=== PATIENT | female | born 1975 | race Hispanic/Latino ===

== ENCOUNTER 2018-11-19 14:37 | Emergency (ER) | payer OTHER ==
--- OUTSIDE RECORDS SUMMARY | 2018-11-19 14:40 | XMS REPORT | Clinical Summary ---
:1975 Author Organization [facility] Address [address] [place] [address] Care Team Providers Name Role Phone Asked, No Pcp Primary Care Provider Unavailable Allergies No Known Allergies Medications Medication Sig Dispensed Refills Start Date End Date Status ibuprofen Take 600 mg by 0 Active (ADVIL,MOTRIN) 600 MG mouth every 6 tablet (six) hours as needed for mild pain. Active Problems Problem Noted Date Panniculitis 11/18/2016 Immunizations Name Dates Previously Given Next Due Pneumococcal Conjugate 13-Valent 11/20/2016 (Deferred: Patient Refused) Family History Medical History Relation Name Comments Diabetes Father Heart disease Maternal Grandmother Dementia Paternal Grandfather Diabetes Paternal Grandmother Relation Name Status Comments Father Alive Maternal Grandmother Mother Alive Paternal Grandfather Paternal Grandmother Social History Tobacco Use Types Packs/Day Years Used Date Current Some Day Smoker Cigarettes 0.25 10 Tobacco Cessation: Ready to Quit: Yes; Counseling Given: Yes Alcohol Use Drinks/Week oz/Week Comments Yes occasionally Sex Assigned at Date Recorded Not on file Job Start Date Occupation Industry Not on file Not on file Not on file Travel History Travel Start Travel End No recent travel history available. Last Filed Vital Signs Not on file Plan of Treatment Not on file Results Not on fileafter 11/18/2017 (Home) [place] [address] Advance Directives Patient has advance care planning documents, and code status on file. For more information, please contact:Wilmar [id number] [facility] [place] [address] Code Status Date Activated Date Inactivated Comments Full Code 11/18/2016 5:58 PM 11/20/2016 6:22 PM Code Status decision reached by: Patient
[2018-11-19 16:14] LABS: Absolute Lymphocytes (CBC) 2.9 K/uL (0.7-4.9); Absolute Monocytes 0.5 K/uL (0.1-1.3); Absolute Neutrophil 6.6 K/uL (1.8-8.0); Basophils % 0.6 % (0-1.3); Eosinophils % 0.4 % (0-4.4); Hematocrit 47.1 % (36.0-45.0); Lymphocytes % 28.7 % (15.3-44.8); MPV 8.2 fL (7.6-11.3); Monocytes % 4.8 % (3.3-12.3); RBC Red Blood Cell Count 5.23 M/uL (3.86-4.86)
[2018-11-19 16:23] LABS: Urine Amorphous Sediment 1+ /HPF (NONE SEEN); Urine Bacteria <20 /HPF (<20); Urine Culture Reflex Order NOT NEEDED; Urine Mucus 2+ /HPF (NONE SEEN); Urine RBC <5 /HPF (NONE SEEN)
[2018-11-19 16:31] LABS: ALT/SGPT 30 U/L (12-78); AST/SGOT 20 U/L (15-37); Albumin 3.5 g/dL (3.4-5.0); Alkaline Phosphatase 125 U/L (45-117); BUN Blood Urea Nitrogen 16 mg/dL (7-18); Bicarbonate 26 mmol/L (21-32); Bilirubin Direct < 0.1 mg/dL (0-0.2); Bilirubin Total 0.3 mg/dL (0.2-1.0); Glucose Level 138 mg/dL (74-106); Lipase 108 U/L (73-393); Potassium 4.6 mmol/L (3.5-5.1); Protein, Total 7.6 g/dL (6.4-8.2); Sodium Level 142 mmol/L (136-145)
[2018-11-19] MEDS ORDERED: NA CHLORIDE 0.9% 1,000 ML ONE (16:59)
[2018-11-19] MEDS ORDERED: ONDANSETRON 4 MG/2 ML VIAL ONE (16:59)
[2018-11-19] MEDS ORDERED: KETOROLAC 30 MG/ML INJ ONE (16:59)
--- NOTE | 2018-11-19 17:49 | RAD REPORT ---
EXAM DESCRIPTION: CT - Abdomen Pelvis W Contrast - 11/19/2018 5:20 pm CLINICAL HISTORY: Abdominal pain with nausea. COMPARISON: 2014 TECHNIQUE: Computed axial tomography of the abdomen pelvis was obtained. 100 cc Isovue-300 was admin istered intravenously. Oral contrast was not requested which limits evaluation of bowel. All CT scans are performed using dose optimization technique as appropriate and may include automated exposure control or mA/KV adjustment according to patient size. FINDINGS: The liver, spleen, pancreas, adrenal and kidneys appear unremarkable. There is no evidence of diverticulitis. Postsurgical changes involve stomach IUD in place. Fluid within nondilated small bowel IMPRESSION: Fluid within nondilated small bowel may indicate an enteritis.
--- NOTE | 2018-11-19 17:57 | EDPHYS ---
Physician Documentation [facility] [place], [place] Name: Ruma Pineda Age: 43 yrs Sex: Female : 1975 Arrival Date: 11/19/2018 Time: 14:40 Bed 13 Private MD: None, None ED Physician Ismael Palomo HPI: 11/19 17:07 This 43 yrs old Female presents to ER via Ambulatory with complaints of kb Abdominal Pain. 17:07 The patient presents with abdominal pain in the upper abdomen. Onset: The kb symptoms/episode began/occurred yesterday. The symptoms do not radiate. Associated signs and symptoms: Pertinent positives: nausea. The symptoms are described as constant. Modifying factors: The symptoms are alleviated by nothing, the symptoms are aggravated by nothing. Severity of pain: At its worst the pain was moderate in the emergency department the pain is unchanged. The patient has experienced a previous episode. The patient has not recently seen a physician. Pt reports she started having upper abd pain yesterday and it is worse today. States she had this same pain when she had a swollen appendix a few years ago so was worried that came back. Reports she was told they only took part of her appendix out when she had surgery.. 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 - Social history:: Smoking status: Patient/guardian denies using tobacco. - Ebola Screening: : Patient negative for fever greater than or equal to 101.5 degrees Fahrenheit, and additional compatible Ebola Virus Disease symptoms Patient denies exposure to infectious person Patient denies travel to an Ebola-affected area in the 21 days before illness onset. ROS: 17:10 Constitutional: Negative for fever, chills, and weight loss, Cardiovascular: Negative kb for chest pain, palpitations, and edema, Respiratory: Negative for shortness of breath, cough, wheezing, and pleuritic chest pain, Back: Negative for injury and pain, : Negative for injury, bleeding, discharge, and swelling, MS/Extremity: Negative for injury and deformity, Skin: Negative for injury, rash, and discoloration, Neuro: Negative for headache, weakness, numbness, tingling, and seizure. 17:10 Abdomen/GI: Positive for abdominal pain, nausea, Negative for vomiting, diarrhea, constipation, abdominal cramps, abdominal distension, anorexia. Exam: 17:10 Constitutional: This is a well developed, well nourished patient who is awake, alert, kb and in no acute distress. Head/Face: Normocephalic, atraumatic. Neck: Trachea midline, no thyromegaly or masses palpated, and no cervical lymphadenopathy. Supple, full range of motion without nuchal rigidity, or vertebral point tenderness. No Meningismus. Chest/axilla: Normal chest wall appearance and motion. Nontender with no deformity. No lesions are appreciated. Cardiovascular: Regular rate and rhythm with a normal S1 and S2. No gallops, murmurs, or rubs. Normal PMI, no JVD. No pulse deficits. Respiratory: Lungs have equal breath sounds bilaterally, clear to auscultation and percussion. No rales, rhonchi or wheezes noted. No increased work of breathing, no retractions or nasal flaring. Back: No spinal tenderness. No costovertebral tenderness. Full range of motion. Skin: Warm, dry with normal turgor. Normal color with no rashes, no lesions, and no evidence of cellulitis. MS/ Extremity: Pulses equal, no cyanosis. Neurovascular intact. Full, normal range of motion. Neuro: Awake and alert, GCS 15, oriented to person, place, time, and situation. Cranial nerves II-XII grossly intact. Motor strength 5/5 in all extremities. Sensory grossly intact. Cerebellar exam normal. Normal gait. 17:10 Abdomen/GI: Inspection: abdomen appears normal, Bowel sounds: normal, in all quadrants, Palpation: soft, in all quadrants, mild abdominal tenderness, in the right upper quadrant and left upper quadrant. Vital Signs: 14:48 BP 132 / 71; Pulse 87; Resp 18; Temp 99.3(O); Pulse Ox 98% on R/A; Weight 77.11 kg; hj Height 5 ft. 4 in. (162.56 cm); Pain 8/10; 17:26 BP 106 / 77; Pulse 75; Resp 18; Pulse Ox 100% on R/A; ae4 14:48 Body Mass Index 29.18 (77.11 kg, 162.56 cm) hj MDM: 15:45 Patient medically screened. 17:07 Data reviewed: vital signs, nurses notes. Data interpreted: Pulse oximetry: on room air kb is 98 %. Interpretation: normal. 17:09 Data reviewed: old medical records, Records reviewed, pt had complete append[place] [address] Radford. Pt educated that her appendix was removed, not just part of it. 17:54 Counseling: I had a detailed discussion with the patient and/or guardian regarding: the kb historical points, exam findings, and any diagnostic results supporting the discharge/admit diagnosis, lab results, radiology results, the need for outpatient follow up, a family practitioner, to return to the emergency department if symptoms worsen or persist or if there are any questions or concerns that arise at home. 11/19 15:04 Order name: Urine Culture sn 11/19 15:04 Order name: Urine Microscopic Only sn 11/19 15:51 Order name: Basic Metabolic Panel 11/19 15:51 Order name: CBC with Diff 11/19 15:51 Order name: Hepatic Function 11/19 15:51 Order name: Lipase 11/19 16:25 Order name: Urine Microscopic Only; Complete Time: 16:27 EDMS 11/19 16:31 Order name: Urine Dipstick--Ancillary (enter results) 11/19 16:31 Order name: Urine --Ancillary (enter results) 11/19 16:32 Order name: Basic Metabolic Panel; Complete Time: 16:34 EDMS 11/19 16:32 Order name: Liver (Hepatic) Function; Complete Time: 16:34 EDMS 11/19 16:32 Order name: Lipase; Complete Time: 16:34 EDMS 11/19 16:35 Order name: CBC with Automated Diff; Complete Time: 16:37 EDMS 11/19 15:04 Order name: Urine Test (obtain specimen); Complete Time: 16:04 snw 11/19 15:04 Order name: Urine Dipstick-Ancillary (obtain specimen); Complete Time: 16:04 snw 11/19 15:51 Order name: IV Saline Lock; Complete Time: 16:04 kb 11/19 15:51 Order name: Labs collected and sent; Complete Time: 16:04 kb 11/19 17:52 Order name: CT; Complete Time: 17:51 EDMS Administered Medications: 16:45 Drug: NS 0.9% 1000 ml Route: IV; Rate: 1000 ml; Site: left antecubital; ae4 16:45 Drug: Zofran 4 mg Route: IVP; Site: left antecubital; ae4 17:30 Follow up: Response: Nausea is decreased ae4 16:50 Drug: TORadol 30 mg Route: IVP; Site: left antecubital; ae4 17:30 Follow up: Response: Pain is decreased ae4 Disposition: 11/19/18 17:56 Discharged to Home. Impression: Enteritis. - Condition is Stable. - Discharge Instructions: Viral Gastroenteritis, Adult, [id number]. - Prescriptions for Bentyl 20 mg Oral Tablet - take 1 tablet by ORAL route every 6 hours As needed; 20 tablet. Zofran 4 mg Oral Tablet - take 1 tablet by ORAL route every 6 hours As needed; 20 tablet. - Medication Reconciliation Form, Thank You Letter, Antibiotic Education, Prescription Opioid Use, Work release form form. - Follow up: Private Physician; When: 2 - 3 days; Reason: Recheck today's complaints, Continuance of care, Re-evaluation by your physician. Follow up: Emergency Department; When: As needed; Reason: Worsening of condition. Addendum: 11/21/2018 06:00 Co-signature as Attending Physician, Ismael Palomo MD. g s Signatures: Dispatcher [employer] [place] Jaky Aguiar, DATA REPORT ANALYST-C DATA REPORT ANALYST-Ckb Lucretia Pitt, CASSIEC DATA REPORT ANALYST-Csnw Tim Edwards, Ismael Hutton RN, MD MD gs Elliott, Andrea, ADRIAN RN ae4 Corrections: (The following items were deleted from the chart) 11/19 18:26 17:56 11/19/2018 17:56 Discharged to Home. Impression: Enteritis. Condition is Stable. ae4 Forms are Medication Reconciliation Form, Thank You Letter, Antibiotic Education, Prescription Opioid Use. Follow up: Private Physician; When: 2 - 3 days; Reason: Recheck today's complaints, Continuance of care, Re-evaluation by your physician. Follow up: Emergency Department; When: As needed; Reason: Worsening of condition. kb
--- NOTE | 2018-11-19 17:57 | ER ---
Nurse's Notes [facility] Name: Ruma Pineda Age: 43 yrs Sex: Female : 1975 Arrival Date: 11/19/2018 Time: 14:40 Bed 13 Private MD: None, None Diagnosis: Enteritis Presentation: 11/19 14:46 Presenting complaint: Patient states: i woke up with pain on my L upper abd, that moves hj to the back, pain is 8/10; reports nausea, denies vomiting; denies diarrhea. Transition of care: patient was not received from another setting of care. Onset of symptoms was November 19, 2018. Risk Assessment: Do you want to hurt yourself or someone else? Patient reports no desire to harm self or others. Initial Sepsis Screen: Does the patient meet any 2 criteria? No. Patient's initial sepsis screen is negative. Does the patient have a suspected source of infection? No. Patient's initial sepsis screen is negative. Care prior to arrival: None. 14:46 Method Of Arrival: Ambulatory 14:46 Acuity: TAI 3 hj Triage Assessment: 15:10 General: Appears uncomfortable, Behavior is cooperative, anxious. Pain: Complains of ae4 pain in abdomen Pain currently is 8 out of 10 on a pain scale. Quality of pain is described as aching, crampy. EENT: No signs and/or symptoms were reported regarding the EENT system. Neuro: Level of Consciousness is awake, alert, obeys commands, Oriented to person, place, time, situation, Appropriate for age. Cardiovascular: Heart tones S1 S2 present Patient's skin is warm and dry. Respiratory: Airway is patent Respiratory effort is even, unlabored, Respiratory pattern is regular, symmetrical, Breath sounds are clear bilaterally. GI: Abdomen is round non-distended, Bowel sounds present X 4 quads. Abd is soft and non tender. : No signs and/or symptoms were reported regarding the genitourinary system. Derm: Skin is pale. Musculoskeletal: No signs and/or symptoms reported regarding the musculoskeletal system. 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 - Social history:: Smoking status: Patient/guardian denies using tobacco. - Ebola Screening: : Patient negative for fever greater than or equal to 101.5 degrees Fahrenheit, and additional compatible Ebola Virus Disease symptoms Patient denies exposure to infectious person Patient denies travel to an Ebola-affected area in the 21 days before illness onset. Screenin:27 Abuse screen: Denies threats or abuse. Nutritional screening: No deficits noted. ae4 Tuberculosis screening: No symptoms or risk factors identified. Fall Risk None identified. Assessment: 15:15 GI: Bowel sounds present X 4 quads. Abd is soft and non tender X 4 quads. ae4 17:27 Reassessment: Patient appears in no apparent distress at this time. Patient and/or ae4 family updated on plan of care and expected duration. Pain level reassessed. Patient states feeling better. 17:40 Reassessment: Patient and/or family updated on plan of care and expected duration. Pain ae4 level reassessed. Updated on plan of care, patient verbalized understanding. Patient states feeling better. Patient states symptoms have improved. Vital Signs: 14:48 BP 132 / 71; Pulse 87; Resp 18; Temp 99.3(O); Pulse Ox 98% on R/A; Weight 77.11 kg; hj Height 5 ft. 4 in. (162.56 cm); Pain 8/10; 17:26 BP 106 / 77; Pulse 75; Resp 18; Pulse Ox 100% on R/A; ae4 14:48 Body Mass Index 29.18 (77.11 kg, 162.56 cm) ED Course: 14:40 Patient arrived in ED. mr 14:41 None, None is Private Physician. mr 14:47 Triage completed. hj 14:48 Arm band placed on left wrist. hj 15:10 Bed in low position. Call light in reach. Side rails up X 1. Pulse ox on. NIBP on. ae4 15:45 Jaky Aguiar FNP-C is PHCP. kb 15:45 Ismael Palomo MD is Attending Physician. kb 15:48 Mitchell Gongora RN is Primary Nurse. ae4 16:04 Initial lab(s) drawn, by fl, sent to lab. Inserted saline lock: 22 gauge in left jb1 antecubital area, using aseptic technique. Blood collected. 16:04 Urine collected: clean catch specimen, clear, mc colored. jb1 17:03 Patient moved to ME via wheelchair. ae4 17:20 No provider procedures requiring assistance completed. IV discontinued, intact, ae4 bleeding controlled, No redness/swelling at site. Pressure dressing applied. 17:26 Patient moved back from ME. ae4 Administered Medications: 16:45 Drug: NS 0.9% 1000 ml Route: IV; Rate: 1000 ml; Site: left antecubital; ae4 16:45 Drug: Zofran 4 mg Route: IVP; Site: left antecubital; ae4 17:30 Follow up: Response: Nausea is decreased ae4 16:50 Drug: TORadol 30 mg Route: IVP; Site: left antecubital; ae4 17:30 Follow up: Response: Pain is decreased ae4 Outcome: 17:30 Discharged to home ambulatory. ae4 17:30 Condition: stable 17:30 Discharge instructions given to patient, Instructed on discharge instructions, follow up and referral plans. Demonstrated understanding of instructions. 17:56 Discharge ordered by . kb 18:26 Patient left the ED. ae4 Signatures: Moreno Jarquin jb1 Jaky Aguiar, SANTI HERNANDEZ-Rhiannon Erickson mr Tim Edwards, Mitchell Mckeon RN, RN RN ae4 Corrections: (The following items were deleted from the chart) 14:50 14:48 77.11 kg; Height 5 ft. 4 in.; BMI: 29.1; Pain 8/10; hj hj 14:50 14:48 Pulse 87bpm; Resp 18bpm; Pulse Ox 98% RA; Temp 99.3F Oral; 77.11 kg; Height 5 ft. hj 4 in.; BMI: 29.1; Pain 8/10; hj
[2018-11-19 18:31] VITALS: TEMP 99.3
[2018-11-19 18:32] VITALS: BP 106/77; O2SAT 100
[2018-11-20 05:34] LABS: Urine Blood NEGATIVE (NEG); Urine Glucose NEGATIVE (NEG); Urine Protein NEGATIVE (NEG); Urine pH 6.5 (5.0-7.0)
== END 2018-11-19 18:26 | disposition home or self-care (01) ==
LOC: ER 14:37
DX: K52.9 Noninfective gastroenteritis and colitis, unspecified (principal); Z88.5 Allergy status to narcotic agent
CPT/HCPCS: 36415; 74177; 80048; 80076; 81003; 81015; 81025; 83690; 85025; 87086; 87088; 96374; 96375; 99284; J2405; J7030; Q9967

== ENCOUNTER 2021-09-27 13:22 | Emergency (ER) | payer OTHER, SELFPAY ==
--- NOTE | 2021-09-27 16:15 | ER ---
Nurse's Notes [facility] Name: Ruma Pineda Age: 46 yrs Sex: Female : 1975 Arrival Date: 09/27/2021 Time: 13:24 Bed 24 Private MD: Diagnosis: Acute pharyngitis, unspecified Presentation: 09/27 14:05 Chief complaint: Patient states: "I have been having fever and a cough. I thought it jd3 was allergies at first. my throat is hurting and my left ear is bothering me, well both are, but mostly my left ear.". Coronavirus screen: At this time, the client does not indicate any symptoms associated with coronavirus-19. Ebola Screen: No symptoms or risks identified at this time. Initial Sepsis Screen: Does the patient meet any 2 criteria? No. Patient's initial sepsis screen is negative. Does the patient have a suspected source of infection? No. Patient's initial sepsis screen is negative. Risk Assessment: Do you want to hurt yourself or someone else? Patient reports no desire to harm self or others. Note Aleve taken at 1307. Onset of symptoms was September 27, 2021. 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 - Social history:: Smoking status: Patient/guardian denies using tobacco, the patient reports quitting approximately 6 years ago. Screenin:45 Abuse screen: Denies threats or abuse. Nutritional screening: No deficits noted. jb4 Tuberculosis screening: No symptoms or risk factors identified. Fall Risk None identified. Assessment: 15:45 General: Appears in no apparent distress. uncomfortable, Behavior is calm, cooperative, jb4 appropriate for age. Pain: Complains of pain in left ear Pain does not radiate. Pain currently is 3 out of 10 on a pain scale. Neuro: Level of Consciousness is awake, alert, obeys commands, Oriented to person, place, time, situation. Cardiovascular: Patient's skin is warm and dry. Respiratory: Airway is patent Respiratory effort is even, unlabored, Respiratory pattern is regular, symmetrical. GI: No signs and/or symptoms were reported involving the gastrointestinal system. : No signs and/or symptoms were reported regarding the genitourinary system. Derm: Skin is intact, Skin is pink, warm \\T\\ dry. Musculoskeletal: Circulation, motion, and sensation intact. Range of motion: intact in all extremities. 16:26 Reassessment: Patient appears in no apparent distress at this time. Patient and/or jb4 family updated on plan of care and expected duration. Pain level reassessed. Patient is alert, oriented x 3, equal unlabored respirations, skin warm/dry/pink. Vital Signs: 14:09 BP 114 / 84; Pulse 114; Resp 18 S; Temp 98.5(TE); Pulse Ox 98% on R/A; Weight 63.5 kg jd3 (R); Height 5 ft. 4 in. (162.56 cm) (R); Pain 3/10; 14:09 Body Mass Index 24.03 (63.50 kg, 162.56 cm) [facility]: 13:24 Patient arrived in ED. mr 14:07 Triage completed. jd3 14:10 Arm band placed on. [facility] 14:18 Fuentes Frank PA [facility] 14:18 Wayne Uriostegui MD is Attending Physician. [facility] 15:37 Luis Winters, ADRIAN is Primary Nurse. jb4 15:45 Patient has correct armband on for positive identification. Bed in low position. Call jb4 light in reach. Side rails up X 1. 15:45 No provider procedures requiring assistance completed. Patient did not have IV access jb during this emergency room visit. Administered Medications: No medications were administered Outcome: 16:14 Discharge ordered by . [facility] 16:27 Discharged to home ambulatory. [facility] 16:27 Condition: stable 16:27 Discharge instructions given to patient, Instructed on discharge instructions, follow up and referral plans. medication usage, Demonstrated understanding of instructions, follow-up care, medications, Prescriptions given X 2. 16:27 Patient left the ED. jb4 Signatures: Fuentes Frank PA PA jmm Rivera, Mary mr Luis Winters RN RN jb4 Donald Nation RN RN jd3 Corrections: (The following items were deleted from the chart) 14:11 14:05 Acuity: TAI 3 jd3 jd3 16:27 15:45 Patient has correct armband on for positive identification. Placed in gown. Bed jb4 in low position. Call light in reach. Side rails up X 1. jb4
--- NOTE | 2021-09-27 16:15 | EDPHYS ---
Physician Documentation [facility] Name: Ruma Pineda Age: 46 yrs Sex: Female : 1975 Arrival Date: 09/27/2021 Time: 13:24 Bed 24 Private MD: ED Physician Wayne Uriostegui HPI: 09/27 15:27 This 46 yrs old Female presents to ER via Ambulatory with complaints of Fever, jmm Ear Pain, Sore Throat. 15:27 The patient reports fever, not measured (subjective). Onset: The symptoms/episode jmm began/occurred gradually, 1 day(s) ago. Modifying factors: there are no obvious modifying factors. Associated signs and symptoms: Pertinent positives: cough, earache, sore throat. This is a 46 year old female with no chronic medical conditions that presents to the ED with com,plaints of left ear pain, sore throat, and mild cough beginning approx 1 day ago. Patient states taking ibuprofen with little relief. . 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 - Social history:: Smoking status: Patient/guardian denies using tobacco, the patient reports quitting approximately 6 years ago. ROS: 15:27 Cardiovascular: Negative for chest pain, palpitations, and edema. jmm 15:27 Constitutional: Positive for body aches, chills. 15:27 ENT: Positive for ear pain. 15:27 Respiratory: Positive for cough. 15:27 Respiratory: Positive for cough. 15:27 All other systems are negative. Exam: 15:27 Constitutional: This is a well developed, well nourished patient who is awake, alert, jmm and in no acute distress. Head/Face: atraumatic. Eyes: EOMI, no conjunctival erythema appreciated 15:27 Neck: Trachea midline, Supple Chest/axilla: Normal chest wall appearance and motion. Cardiovascular: Regular rate and rhythm. No edema appreciated Respiratory: Normal respirations, no respiratory distress appreciated Abdomen/GI: Non distended, soft Back: Normal ROM Skin: General appearance color normal MS/ Extremity: Moves all extremities, no obvious deformities appreciated, no edema noted to the lower extremities Neuro: Awake and alert Psych: Behavior is normal, Mood is normal, Patient is cooperative and pleasant 15:27 ENT: TM's: erythema, that is moderate, on the right, Posterior pharynx: erythema, that is moderate. Vital Signs: 14:09 BP 114 / 84; Pulse 114; Resp 18 S; Temp 98.5(TE); Pulse Ox 98% on R/A; Weight 63.5 kg jd3 (R); Height 5 ft. 4 in. (162.56 cm) (R); Pain 3/10; 14:09 Body Mass Index 24.03 (63.50 kg, 162.56 cm) jd3 MDM: 15:27 Patient medically screened. [facility] 16:13 Data reviewed: vital signs, nurses notes. Counseling: I had a detailed discussion with nalini the patient and/or guardian regarding: the historical points, exam findings, and any diagnostic results supporting the discharge/admit diagnosis, the need for outpatient follow up, to return to the emergency department if symptoms worsen or persist or if there are any questions or concerns that arise at home. 09/27 15:32 Order name: COVID-19/FLU A+B (Document "Date of Onset" if Symptomatic) [facility] 09/27 15:32 Order name: Strep [facility] Administered Medications: No medications were administered Disposition: 19:15 Co-signature as Attending Physician, Wayne Uriostegui MD. rn Disposition Summary: 09/27/21 16:14 Discharge Ordered Location: Home [facility] Condition: Stable [facility] Diagnosis - Acute pharyngitis, unspecified [facility] Followup: [facility] - With: Private Physician - When: 2 - 3 days - Reason: Recheck today's complaints, Continuance of care, Re-evaluation by your physician Discharge Instructions: - Discharge Summary Sheet [facility] - Pharyngitis [facility] Forms: - Medication Reconciliation Form [facility] - Thank You Letter [facility] - Antibiotic Education [facility] - Prescription Opioid Use [facility] Prescriptions: - cefdinir 300 mg Oral capsule - take 1 capsule by ORAL route every 12 hours for 10 days; 20 capsule; Refills: jmyessenia 0, Product Selection Permitted - Medrol (Corbin) 4 mg Oral Tablets, Dose Pack - take 1 tablet by ORAL route as directed - follow package instructions; 1 jmm packet; Refills: 0, Product Selection Permitted Signatures: Dispatcher [employer] Fuentes Jeffery PA PA jmm Nieto, Roman, MD MD rn NationDonald RN RN jd3
[2021-09-27 18:02] LABS: SARS-COV-2 RT PCR NEGATIVE (NEGATIVE)
[2021-09-27 19:14] VITALS: BP 114/84; TEMP 98.5; O2SAT 98
== END 2021-09-27 16:27 | disposition home or self-care (01) ==
LOC: ER 13:22
DX: J02.9 Acute pharyngitis, unspecified (principal); R05.9 Cough, unspecified; H92.02 Otalgia, left ear; Z20.822 Contact with and (suspected) exposure to COVID-19; Z88.5 Allergy status to narcotic agent
CPT/HCPCS: 0240U; 87070; 87081; 99282

== ENCOUNTER 2021-12-13 13:04 | Emergency (ER) | payer SELFPAY ==
[2021-12-13] MEDS ORDERED: LIDOCAINE 4% PATCH ONE (14:15)
[2021-12-13] MEDS ORDERED: KETOROLAC 30 MG/ML INJ ONE (14:15)
[2021-12-13 14:33] LABS: Urine Blood Negative (Negative); Urine Glucose Negative (Negative); Urine Protein Negative (Negative); Urine Specific Gravity >=1.030 (1.005-1.030); Urine pH 5.5 (5.0-7.0)
--- NOTE | 2021-12-13 16:09 | RAD REPORT ---
EXAM DESCRIPTION: RAD - Lumbar Spine 3 Views - 12/13/2021 3:57 pm CLINICAL HISTORY: PAIN, left lower extremity radiculopathy COMPARISON: No comparisons FINDINGS: A three-view lumbar spine examination was performed. Lumbar bodies are normal in height and alignment. No fracture or acute bony process seen. No disc spa ce narrowing. No other significant findings. No pars defects identified. IMPRESSION: Negative Lumbar Spine examination. Concerns for disc herniation, central canal abnormality or occult bone process can be addressed with MR imaging.
[2021-12-13 16:31] LABS: Urine Bacteria NONE SEEN /HPF (<20); Urine RBC <5 /HPF (NONE SEEN)
--- NOTE | 2021-12-13 16:54 | EDPHYS ---
Physician Documentation [facility] Name: Ruma Pineda Age: 46 yrs Sex: Female : 1975 Arrival Date: 12/13/2021 Time: 13:07 Bed 11 Private MD: ED Physician Wayne Uriostegui HPI: 12/13 16:45 This 46 yrs old Female presents to ER via Ambulatory with complaints of Back cp Pain. 16:45 The patient presents with pain that is acute. The symptoms are located in the left mid cp back. Onset: The symptoms/episode began/occurred today. The pain radiates to the left leg. Associated signs and symptoms: Pertinent negatives: abdominal pain, constipation, dysuria, fever, incontinence, numbness, urinary retention, weakness. 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 - Social history:: Smoking status: Patient reports the use of cigarette tobacco products, 4-6 cigarettes a day . ROS: 16:50 Back: Positive for pain at rest, pain with movement, of the left mid back. cp 16:50 Constitutional: Negative for body aches, chills, fever, poor PO intake. cp 16:50 Cardiovascular: Negative for chest pain, edema, palpitations. cp 16:50 Respiratory: Negative for cough, shortness of breath, wheezing. 16:50 Abdomen/GI: Negative for abdominal pain, nausea, vomiting, and diarrhea, constipation. 16:50 : Negative for urinary symptoms, difficulty urinating, bladder incontinence. cp 16:50 Skin: Negative for rash. cp 16:50 Neuro: Negative for altered mental status, headache, numbness, tingling, weakness. 16:50 All other systems are negative. Exam: 16:55 Constitutional: The patient appears in no acute distress, alert, awake, non-toxic, well cp developed, well nourished, uncomfortable. 16:55 Head/Face: Normocephalic, atraumatic. cp 16:55 Eyes: Periorbital structures: appear normal, Conjunctiva: normal, no exudate, no cp injection, Sclera: no appreciated abnormality, Lids and lashes: appear normal, bilaterally. 16:55 ENT: External ear(s): are unremarkable, Nose: is normal, Mouth: is normal, Posterior cp pharynx: Airway: no evidence of obstruction, patent. 16:55 Neck: ROM/movement: is normal, is supple, without pain, no range of motions limitations, no nuchal rigidity. 16:55 Chest/axilla: Inspection: normal. 16:55 Cardiovascular: Rate: normal, Rhythm: regular, Edema: is not appreciated, JVD: is not appreciated. 16:55 Respiratory: the patient does not display signs of respiratory distress, Respirations: normal, no use of accessory muscles, no retractions, labored breathing, is not present, Breath sounds: are clear throughout, no decreased breath sounds, no stridor, no wheezing. 16:55 Abdomen/GI: Inspection: abdomen appears normal, Palpation: abdomen is soft and non-tender, in all quadrants. 16:55 Back: pain, that is moderate, of the lumbar area, left low back and left mid back, ROM is painful, with all movement, Straight leg raises: of both lower extremities does not illicit pain. 16:55 Neuro: Motor: moves all fours, strength is normal, Sensation: is normal, Gait: is steady, Deep tendon reflexes are 2+ (normal) in the right patellar, right Achilles, left patellar and left Achilles. Vital Signs: 14:02 BP 120 / 92; Pulse 73; Resp 18 S; Temp 98.1(TE); Pulse Ox 100% on R/A; Weight 68.04 kg aa5 (R); Height 5 ft. 4 in. (162.56 cm) (R); Pain 8/10; 14:02 Body Mass Index 25.75 (68.04 kg, 162.56 cm) aa5 MDM: 14:30 Differential diagnosis: Fracture ruptured disc, spinal injury, sprain, vertebral cp fracture. 16:52 Patient medically screened. cp 16:53 Data reviewed: vital signs, nurses notes, lab test result(s), radiologic studies, plain cp films. 16:53 Test interpretation: by ED physician or midlevel provider: plain radiologic studies. cp Counseling: I had a detailed discussion with the patient and/or guardian regarding: the historical points, exam findings, and any diagnostic results supporting the discharge/admit diagnosis, lab results, radiology results, the need for outpatient follow up, a family practitioner, to return to the emergency department if symptoms worsen or persist or if there are any questions or concerns that arise at home. 12/13 14:05 Order name: Urine Microscopic Only; Complete Time: 16:45 cp 12/13 14:34 Order name: Urine Dipstick-Ancillary; Complete Time: 16:45 EDMS 12/13 14:05 Order name: XRAY Lumbar Spine (3 Views); Complete Time: 16:45 cp 12/13 14:05 Order name: Urine Dipstick-Ancillary (obtain specimen); Complete Time: 14:33 cp 12/13 14:05 Order name: Urine Test (obtain specimen); Complete Time: 14:33 cp Administered Medications: 14:33 Drug: Lidoderm Patch 5 % (700 mg/patch) 1 patches {Note: left side of back.} Route: aa5 Topical; Site: affected area; 14:34 Drug: TORadol (ketorolac) 30 mg {Note: UPT Negative.} Route: IM; Site: left gluteus; aa5 Disposition: 12/14 07:00 Co-signature as Attending Physician, Wayne Uriostegui MD. rn Disposition Summary: 12/13/21 16:53 Discharge Ordered Location: Home cp Problem: new cp Symptoms: have improved cp Condition: Stable cp Diagnosis - Low back pain - left cp Followup: cp - With: Private Physician - When: 2 - 3 days - Reason: Recheck today's complaints Discharge Instructions: - Discharge Summary Sheet cp - Acute Back Pain, Adult cp - Heat Therapy cp - Back Exercises cp - Form - Excuse from Work, School, or Physical Activity cp Forms: - Medication Reconciliation Form cp - Thank You Letter cp - Antibiotic Education cp - Prescription Opioid Use cp Prescriptions: - Lidoderm 5 % Topical adhesive patch,medicated - apply 1 patch by TOPICAL route once daily; 15 patch; Refills: 0, Product cp Selection Permitted - Cyclobenzaprine 10 mg Oral Tablet - take 1 tablet by ORAL route every 8 hours As needed; 30 tablet; Refills: 0, cp Product Selection Permitted - Diclofenac Sodium 75 mg Oral tablet,delayed release (DR/EC) - take 1 tablet by ORAL route 2 times per day; 20 tablet; Refills: 0, Product cp Selection Permitted Signatures: Dispatcher [employer] Wayne Harmon MD MD rn Calderon, Audri, RN RN aa5 Jorgito Elder PA PA cp
--- NOTE | 2021-12-13 16:54 | ER ---
Nurse's Notes [facility] Name: Ruma Pineda Age: 46 yrs Sex: Female : 1975 Arrival Date: 12/13/2021 Time: 13:07 Bed 11 Private MD: Diagnosis: Low back pain-left Presentation: 12/13 14:02 Chief complaint: Patient states: left lower back pain radiating to left leg that began aa5 at 0900. 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 Coronavirus screen: At this time, the client does not indicate any symptoms associated with coronavirus-19. Ebola Screen: No symptoms or risks identified at this time. Initial Sepsis Screen: Does the patient meet any 2 criteria? No. Patient's initial sepsis screen is negative. Does the patient have a suspected source of infection? No. Patient's initial sepsis screen is negative. Risk Assessment: Do you want to hurt yourself or someone else? Patient reports no desire to harm self or others. Onset of symptoms was November 2021. 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 - Social history:: Smoking status: Patient reports the use of cigarette tobacco products, 4-6 cigarettes a day . Vital Signs: 14:02 BP 120 / 92; Pulse 73; Resp 18 S; Temp 98.1(TE); Pulse Ox 100% on R/A; Weight 68.04 kg aa5 (R); Height 5 ft. 4 in. (162.56 cm) (R); Pain 8/10; 14:02 Body Mass Index 25.75 (68.04 kg, 162.56 cm) aa5 ED Course: 13:07 Patient arrived in ED. mr 14:02 Arm band placed on. aa5 14:04 Jorgito Elder PA is PHCP. cp 14:04 Wayne Uriostegui MD is Attending Physician. cp 14:04 Triage completed. aa5 15:59 XRAY Lumbar Spine (3 Views) In Process Unspecified. EDMS 16:50 Mel Arias, RN is Primary Nurse. iw Administered Medications: 14:33 Drug: Lidoderm Patch 5 % (700 mg/patch) 1 patches {Note: left side of back.} Route: aa5 Topical; Site: affected area; 14:34 Drug: TORadol (ketorolac) 30 mg {Note: UPT Negative.} Route: IM; Site: left gluteus; aa5 Outcome: 16:53 Discharge ordered by . cp 17:04 Patient left the ED. iw Signatures: Dispatcher [employer] EDNJ Rhiannon Pierre mr Mel Arias, RN RN iw Janet Castro RN RN aa5 Jorgito Elder PA PA cp Corrections: (The following items were deleted from the chart) 14:04 14:02 BP 120 / 92; Pulse 73bpm; Resp 18bpm; Spontaneous; Pulse Ox 100% RA; Temp 98.1F aa5 Temporal; 68.04 kg Reported; Height 5 ft. 4 in. Reported; BMI: 25.7; aa5
[2021-12-13 17:26] VITALS: BP 120/92; TEMP 98.1; O2SAT 100
== END 2021-12-13 17:04 | disposition home or self-care (01) ==
LOC: ER 13:04
DX: M54.50 Low back pain, unspecified (principal); Z88.5 Allergy status to narcotic agent
CPT/HCPCS: 72100; 81003; 81015; 96372; 99283; J2001

== ENCOUNTER → 2023-07-31 | Emergency (ER) | payer SELFPAY ==
[~2023-07-31] MED LIST: FAMOTIDINE 20 MG/2 ML VIAL IV ONE; NA CHLORIDE 0.9% 1,000 ML ONE; ONDANSETRON 4 MG/2 ML VIAL ONE; Ringers Lactate 1,000 ML IV ONE
[2023-07-31 06:42] LABS: Absolute Lymphocytes (CBC) 0.2 K/uL (0.7-4.9); Hematocrit 47.1 % (36.0-45.0); Lymphocytes % 1.7 % (15.3-44.8); MCV 95.4 fL (80-100); MPV 7.4 fL (7.6-11.3); Platelets 280 thou/uL (152-406); RBC Red Blood Cell Count 4.93 M/uL (3.86-4.86)
[2023-07-31 06:59] LABS: Albumin 3.6 g/dL (3.4-5.0); Bilirubin Total 0.5 mg/dL (0.2-1.0); Potassium 3.4 mEq/L (3.5-5.1); Protein, Total 7.7 g/dL (6.4-8.2)
[2023-07-31 07:06] LABS: SARS-CoV-2 Antigen Rapid Res Negative (Negative)
[2023-07-31 07:09] LABS: Blood Morphology Comment NOT SEEN (NOT SEEN); Platelet Estimate ADEQ; White Blood Cell Scan OK (OK)
--- NOTE | 2023-07-31 08:05 | RAD REPORT ---
EXAM DESCRIPTION: CT - Abdomen Pelvis W Contrast - 07/31/2023 7:19 am CLINICAL HISTORY: Abd pain;Nausea / vomiting COMPARISON: Abdomen Pelvis W Contrast dated 11/19/2018; CT ABD PELVIS W CONTRAST dated 12/15/2014; CT ABD PELVIS W CONTRAST dated 06/23/2013 TECHNIQUE: Thin cut axial CT imaging of the abdomen and pelvis was performed following intravenous a dministration of 100 mL Isovue 300. Multiplanar reformats were generated and reviewed. All CT scans are performed using dose optimization technique as appropriate and may include automated exposure control or mA/KV adjustment according to patient size. FINDINGS: No suspicious findings in the lung bases. The liver, spleen, adrenal glands, and pancreas show no suspicious findings. Gallbladder was surgical ly removed. Symmetric renal function is seen with no hydronephrosis or suspicious renal mass. 2 mm nonobstructing left interpolar calculus. Sequelae of Doris-en-Y gastric bypass. Mildly dilated proximal small bowel loops, with short-segment a ir-fluid levels. Fluid opacification of the proximal colon as well. No bowel wall thickening. No free air, free fluid or inflammatory stranding. No hernia, mass or bulky lymphadenopathy. Mild colonic di verticulosis. IUD in place. The urinary bladder is without significant finding. No suspicious bony findings. IMPRESSION: Mildly fluid distended proximal small bowel loops with no clear transition point. Mild f luid opacification of the proximal colon as well. Findings are most suggestive of ileus. Sequelae of Doris-en-Y gastric bypass and cholecystectomy. Nonobstructing 2 mm left renal calculus.
[2023-07-31 08:10] LABS: Specific Gravity > 1.030 (1.005-1.030); Urine Bilirubin NEGATIVE (Negative); Urine Blood Negative (Negative); Urine Clarity Clear (Clear); Urine Color Colorless (Yellow); Urine Glucose NEGATIVE (Negative); Urine Protein NEGATIVE (Negative); Urine Urobilinogen Normal (Normal)
--- NOTE | 2023-07-31 08:28 | EDPHYS ---
Physician Documentation [facility] Name: Ruma Pineda Age: 48 yrs Sex: Female : 1975 Arrival Date: 07/31/2023 Time: 06:11 Bed 15 Private MD: ED Physician Doc Encinas HPI: 07/31 06:27 This 48 yrs old Female presents to ER via Unassigned with complaints of rn Nausea/Vomiting/Diarrhea. 06:27 The patient presents to the emergency department with nausea, vomiting, diarrhea, rn abdominal pain. Onset: The symptoms/episode began/occurred yesterday. Possible causes: unknown. The symptoms are aggravated by nothing. The symptoms are alleviated by nothing. Associated signs and symptoms: Pertinent positives: abdominal pain, diarrhea, nausea, vomiting, Pertinent negatives: fever, GI bleeding. Severity of symptoms: At their worst the symptoms were moderate in the emergency department the symptoms are unchanged. The patient has not experienced similar symptoms in the past. Patient reports began yesterday with abdominal pain/nausea/vomiting/diarrhea. Reports diarrhea is worse than the vomiting. No fever. 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 No blood in stool. Also reports cough and congestion in addition to headache.. 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 - Social history:: Smoking status: Patient reports the use of cigarette tobacco products, smokes one-half pack cigarettes per day, Patient uses alcohol, on a daily basis. Patient/guardian denies using street drugs. - Family history:: not pertinent. - Hospitalizations: : No recent hospitalization is reported. 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, ENT: Positive for congestion Neck: Negative for injury, pain, and swelling, Cardiovascular: Negative for chest pain, palpitations, and edema, Respiratory: Positive for cough, negative for shortness of breath Abdomen/GI: Positive for abdominal pain and nausea/vomiting/diarrhea MS/Extremity: Negative for injury and deformity, Skin: Negative for injury, rash, and discoloration, Neuro: Positive for headache and generalized weakness Exam: 06:27 Constitutional: This is a well developed, well nourished patient who is awake, 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 Actively vomiting once arrival in room Head/Face: Normocephalic, atraumatic. ENT: Dry mucous membranes, no stridor Neck: Trachea midline, no masses palpated, and no cervical lymphadenopathy. Supple, full range of motion without nuchal rigidity, or vertebral point tenderness. No Meningismus. Cardiovascular: Tachycardic, regular. Respiratory: No increased work of breathing, no retractions or nasal flaring. Abdomen/GI: Soft, mild epigastric tenderness. No rebound or distention MS/ Extremity: Pulses equal, no cyanosis. Neuro: Awake and alert, GCS 15 Vital Signs: 06:28 BP 134 / 69; Pulse 124; Resp 16 S; Temp 98.2(O); Pulse Ox 100% on R/A; Weight 45.36 kg lg3 (R); Height 5 ft. 4 in. (R); 06:46 BP 134 / 69; Pulse 111; Resp 18 S; Pulse Ox 98% on R/A; kc6 07:48 BP 145 / 85; Pulse 116; Resp 18; Pulse Ox 98% on R/A; db 08:00 BP 145 / 96; Pulse 112; Resp 16; Pulse Ox 98% on R/A; db 06:28 Body Mass Index 17.16 (45.36 kg, 162.56 cm) lg3 MDM: 06:15 Patient medically screened. rn 07:02 Transition of care: After a detail discussion of the patient's case, care is rn transferred to Doc Encinas DO. 07:27 Transition of care: Care assumed from Wayne Uriostegui MD. ms3 08:31 Differential diagnosis: Nonspecific abd pain, gastritis, viral gastroenteritis, ms3 gastroenteritis. Data reviewed: vital signs, nurses notes, lab test result(s), radiologic studies, and as a result, I will discharge patient. I considered the following discharge prescriptions or medication management in the emergency department Medications were administered in the Emergency Department. See MAR. Counseling: I had a detailed discussion with the patient and/or guardian regarding the historical points, exam findings, and any diagnostic results supporting the discharge/admit diagnosis, lab results, radiology results, the need for outpatient follow up, to return to the emergency department if symptoms worsen or persist or if there are any questions or concerns that arise at home. ED course: Discussed labs, CT findings with patient. Patient tolerating p.o., abdomen benign at this time. Discussed observation versus discharge with patient and patient would like to be discharged home. All questions were answered. Patient to follow-up with primary care physician 2 to 3 days. Return precautions discussed include worsening symptoms, or any other concerns.. 07/31 06:27 Order name: CBC with Diff; Complete Time: 07:49 rn 07/31 06:27 Order name: CMP; Complete Time: 06:59 rn 07/31 06:27 Order name: Lipase; Complete Time: 06:59 rn 07/31 06:27 Order name: Urinalysis w/ reflexes; Complete Time: 08:17 rn 07/31 06:27 Order name: Flu; Complete Time: 06:57 rn 07/31 06:27 Order name: SARS RAPID; Complete Time: 07:49 rn 07/31 06:45 Order name: CBC Smear Scan; Complete Time: 07:49 EDUT 07/31 06:27 Order name: CT Abd/Pelvis - IV Contrast Only; Complete Time: 08:17 rn 07/31 06:27 Order name: IV Saline Lock; Complete Time: 06:27 rn 07/31 06:27 Order name: Labs collected and sent; Complete Time: 06:27 rn Administered Medications: 06:27 Drug: Ondansetron IVP 4 mg IVP once; over 2 minutes Route: IVP; Site: right antecubital;kc6 06:46 Follow up: Response: No adverse reaction; Nausea is decreased; Vomiting decreased kc6 06:36 Drug: NS 0.9% IV 1000 ml IV at 1 bolus Per protocol; 1000 mL bolus Route: IV; Rate: 1 kc6 bolus; Site: right antecubital; 08:12 Follow up: Response: No adverse reaction; IV Status: Completed infusion; IV Intake: db 1000ml 06:36 Drug: Famotidine IVP 20 mg IVP once; dilute with 10 mL 0.9% NaCl; give over 2 minutes kc6 Route: IVP; Site: right antecubital; 08:12 Follow up: Response: No adverse reaction db 07:51 Drug: Lactated Ringers Solution IV 1000 ml IV at bolus bolus Route: IV; Rate: bolus; db Site: right antecubital; 08:55 Follow up: Response: No adverse reaction; IV Status: Completed infusion; IV Intake: db 1000ml Disposition Summary: 07/31/23 08:27 Discharge Ordered Notes: Location: Home ms3 Condition: Stable ms3 Diagnosis - Ileus, unspecified ms3 - Nausea with vomiting, unspecified ms3 - Diarrhea, unspecified ms3 Followup: ms3 - With: Ernie Owens DO - When: 2 - 3 days - Reason: Recheck today's complaints Discharge Instructions: - Food Choices to Help Relieve Diarrhea, Adult ms3 - Ileus ms3 - Discharge Summary Sheet db Forms: - Medication Reconciliation Form ms3 - Thank You Letter ms3 - Antibiotic Education ms3 - Prescription Opioid Use ms3 - Patient Portal Instructions ms3 - Leadership Thank You Letter ms3 - Work release form db - Family Work Release db Prescriptions: - ondansetron 4 mg Oral Tablet,disintegrating - take 1 tablet ORAL route every 8 hours; 15 tablet; Refills: 0, Product ms3 Selection Permitted Signatures: Dispatcher [employer] Wayne Harmon MD MD rn Able, Lacie, RN RN lg3 Doc Encinas DO DO ms3 Jasmin Treadwell RN RN kc6 Noris Cruz RN RN db Corrections: (The following items were deleted from the chart) 06:35 06:33 PMHx: seasonal allergies; lg3 lg3 06:35 06:33 PSHx: section; lg3 lg3 06:35 06:33 PSHx: tummy tuck; lg3 lg3
--- NOTE | 2023-07-31 08:28 | ER ---
Nurse's Notes [facility] Name: Ruma Pineda Age: 48 yrs Sex: Female : 1975 Arrival Date: 07/31/2023 Time: 06:11 Bed 15 Private MD: Diagnosis: Ileus, unspecified;Nausea with vomiting, unspecified;Diarrhea, unspecified Presentation: 07/31 06:28 Chief complaint: Patient states: nausea and diarrhea beginning yesterday morning. lg3 vomiting beginning 1500 without being able to tolerate food or liquids with epigastric pain radiating to the back. Coronavirus screen: Client denies travel out of the [place] in the last 14 days. At this time, the client does not indicate any symptoms associated with coronavirus-19. Ebola Screen: No symptoms or risks identified at this time. Initial Sepsis Screen: Does the patient meet any 2 criteria? No. Patient's initial sepsis screen is negative. Does the patient have a suspected source of infection? No. Patient's initial sepsis screen is negative. Risk Assessment: Do you want to hurt yourself or someone else? Patient reports no desire to harm self or others. Onset of symptoms was July 30, 2023. 06:28 Method Of Arrival: Ambulatory lg3 06:28 Acuity: TAI 3 lg3 Triage Assessment: 06:33 General: Appears in no apparent distress. uncomfortable, Behavior is calm, cooperative. lg3 Pain: Complains of pain in epigastric area Pain radiates to back Also complains of decreased appetite, nausea. EENT: No deficits noted. No signs and/or symptoms were reported regarding the EENT system. Neuro: No deficits noted. Agarwal Agitation-Sedation Scale (RASS): 0 - Alert and Calm Level of Consciousness is awake, alert, obeys commands, Oriented to person, place, time, situation. Cardiovascular: No deficits noted. Denies chest pain, shortness of breath, Capillary refill < 3 seconds Clubbing of nail beds is absent JVD is absent Patient's skin is warm and dry. Respiratory: No deficits noted. Airway is patent Respiratory effort is even, unlabored, Respiratory pattern is regular, symmetrical. GI: Abdomen is round non-distended, Bowel sounds present X 4 quads. Reports upper abdominal pain, diarrhea, indigestion, intolerance of fluids, intolerance of food, nausea, vomiting. : No deficits noted. No signs and/or symptoms were reported regarding the genitourinary system. Derm: No deficits noted. No signs and/or symptoms reported regarding the dermatologic system. Skin is intact, is healthy with good turgor, Skin is dry, Skin is normal, Skin temperature is warm. Musculoskeletal: No deficits noted. No signs and/or symptoms reported regarding the musculoskeletal system. Circulation, motion, and sensation intact. Range of motion: intact in all extremities. 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 - Social history:: Smoking status: Patient reports the use of cigarette tobacco products, smokes one-half pack cigarettes per day, Patient uses alcohol, on a daily basis. Patient/guardian denies using street drugs. - Family history:: not pertinent. - Hospitalizations: : No recent hospitalization is reported. Screenin:19 [facility] ED Fall Risk Assessment (Adult) History of falling in the last 3 months, kc6 including since admission No falls in past 3 months (0 pts) Confusion or Disorientation No (0 pts) Intoxicated or Sedated No (0 pts) Impaired Gait No (0 pts) Mobility Assist Device Used No (0 pt) Altered Elimination No (0 pt) Score/Fall Risk Level 0 - 2 = Low Risk. Abuse screen: Denies threats or abuse. Denies injuries from another. Nutritional screening: No deficits noted. Tuberculosis screening: No symptoms or risk factors identified. Assessment: 06:25 General: Appears in no apparent distress. uncomfortable, well groomed, well developed, kc6 Behavior is calm, cooperative, appropriate for age. Pain: Complains of pain in back and epigastric area. Neuro: Level of Consciousness is awake, alert, obeys commands, Oriented to person, place, time, situation, Appropriate for age. Cardiovascular: Capillary refill < 3 seconds. Respiratory: Airway is patent Trachea midline Respiratory effort is even, unlabored, Respiratory pattern is regular, symmetrical. GI: Pt is actively vomiting bile, clear fluid, Bowel sounds present X 4 quads. Abd is soft X 4 quads Abdomen is tender to palpation in epigastric area Reports upper abdominal pain, diarrhea, intolerance of fluids, intolerance of food, nausea, vomiting. : No signs and/or symptoms were reported regarding the genitourinary system. EENT: No signs and/or symptoms were reported regarding the EENT system. Derm: No signs and/or symptoms reported regarding the dermatologic system. Skin is intact, is healthy with good turgor, Skin is pink, warm \T\ dry. Musculoskeletal: No signs and/or symptoms reported regarding the musculoskeletal system. Circulation, motion, and sensation intact. Capillary refill < 3 seconds, Range of motion: intact in all extremities. 07:23 Reassessment: PATIENT RETURNED TO ROOM FROM CT. db 07:35 Reassessment: Patient appears in no apparent distress at this time. Patient and/or db family updated on plan of care and expected duration. Pain level reassessed. Patient is alert, oriented x 3, equal unlabored respirations, skin warm/dry/pink. PATIENT AMBULATORY TO RESTROOM. 08:55 Reassessment: Patient appears in no apparent distress at this time. Patient and/or db family updated on plan of care and expected duration. Pain level reassessed. Patient is alert, oriented x 3, equal unlabored respirations, skin warm/dry/pink. Patient states feeling better. Patient states symptoms have improved. Vital Signs: 06:28 BP 134 / 69; Pulse 124; Resp 16 S; Temp 98.2(O); Pulse Ox 100% on R/A; Weight 45.36 kg lg3 (R); Height 5 ft. 4 in. (R); 06:46 BP 134 / 69; Pulse 111; Resp 18 S; Pulse Ox 98% on R/A; kc6 07:48 BP 145 / 85; Pulse 116; Resp 18; Pulse Ox 98% on R/A; db 08:00 BP 145 / 96; Pulse 112; Resp 16; Pulse Ox 98% on R/A; db 06:28 Body Mass Index 17.16 (45.36 kg, 162.56 cm) lg3 ED Course: 06:14 Patient arrived in ED. [id number] 06:15 Wayne Uriostegui MD is Attending Physician. rn 06:19 Jasmin Treadwell RN is Primary Nurse. kc6 06:19 Patient maintains SpO2 saturation greater than 95% on room air. kc6 06:19 Patient has correct armband on for positive identification. Bed in low position. Call kc6 light in reach. Side rails up X 1. Adult w/ patient. Client placed on continuous cardiac and pulse oximetry monitoring. NIBP monitoring applied. 06:22 Inserted saline lock: 20 gauge in right antecubital area, using aseptic technique. ha1 Blood collected. 06:33 Triage completed. lg3 06:33 Arm band placed on right wrist. lg3 07:21 CT Abd/Pelvis - IV Contrast Only In Process Unspecified. EDMS 07:27 Attending Physician role handed off by Wayne Uriostegui MD ms3 07:27 Doc Encinas DO is Attending Physician. ms3 08:27 Ernie Owens DO is Referral Physician. ms3 08:55 No provider procedures requiring assistance completed. IV discontinued, intact, db bleeding controlled, No redness/swelling at site. 08:55 Provided Education on: DISCHARGE. db Administered Medications: 06:27 Drug: Ondansetron IVP 4 mg IVP once; over 2 minutes Route: IVP; Site: right antecubital;kc6 06:46 Follow up: Response: No adverse reaction; Nausea is decreased; Vomiting decreased kc6 06:36 Drug: NS 0.9% IV 1000 ml IV at 1 bolus Per protocol; 1000 mL bolus Route: IV; Rate: 1 kc6 bolus; Site: right antecubital; 08:12 Follow up: Response: No adverse reaction; IV Status: Completed infusion; IV Intake: db 1000ml 06:36 Drug: Famotidine IVP 20 mg IVP once; dilute with 10 mL 0.9% NaCl; give over 2 minutes kc6 Route: IVP; Site: right antecubital; 08:12 Follow up: Response: No adverse reaction db 07:51 Drug: Lactated Ringers Solution IV 1000 ml IV at bolus bolus Route: IV; Rate: bolus; db Site: right antecubital; 08:55 Follow up: Response: No adverse reaction; IV Status: Completed infusion; IV Intake: db 1000ml Medication: 08:55 VIS not applicable for this client. db Intake: 08:12 IV: 1000ml; Total: 1000ml. db 08:55 IV: 1000ml; Total: 2000ml. db Outcome: 08:27 Discharge ordered by . ms3 08:55 Discharged to home ambulatory, db 08:55 Condition: stable 08:55 Discharge instructions given to patient, Instructed on discharge instructions, follow up and referral plans. Prescriptions given X 1, 09:06 Patient left the ED. db Signatures: Dispatcher [employer] EDMS Wayne Uriostegui MD MD rn Able, Lacie, RN RN lg3 Doc Encinas DO DO ms3 Rachel Perez jj6 Tammie Malave RN RN ha1 Jasmin Treadwell RN RN kc6 Noris Cruz RN RN db Corrections: (The following items were deleted from the chart) 06:35 06:33 PMHx: seasonal allergies; lg3 lg3 06:35 06:33 PSHx: section; lg3 lg3 06:35 06:33 PSHx: tummy tuck; lg3 lg3
[2023-07-31 09:33] VITALS: BP 145/96; TEMP 98.2; O2SAT 98
== END ==
LOC: ER 06:11
DX: K56.7 Ileus, unspecified (principal); R19.7 Diarrhea, unspecified; Z11.52 Encounter for screening for COVID-19
CPT/HCPCS: 36415; 74177; 80053; 81003; 83690; 85025; 87804; 87811; J2405; J7030; J7120; Q9967

== ENCOUNTER → 2023-08-01 | Emergency (ER) | payer SELFPAY ==
[~2023-08-01] MED LIST changes: -FAMOTIDINE 20 MG/2 ML VIAL IV ONE; +KETOROLAC 30 MG/ML INJ ONE; -Ringers Lactate 1,000 ML IV ONE
[2023-08-01 19:26] LABS: Absolute Lymphocytes (CBC) 1.3 K/uL (0.7-4.9); Hematocrit 46.7 % (36.0-45.0); Lymphocytes % 21.6 % (15.3-44.8); MCV 94.9 fL (80-100); MPV 7.7 fL (7.6-11.3); Platelets 231 thou/uL (152-406); RBC Red Blood Cell Count 4.92 M/uL (3.86-4.86)
[2023-08-01 19:37] LABS: Albumin 3.3 g/dL (3.4-5.0); Bilirubin Total 0.2 mg/dL (0.2-1.0); Potassium 3.1 mEq/L (3.5-5.1); Protein, Total 7.5 g/dL (6.4-8.2)
--- NOTE | 2023-08-01 20:51 | RAD REPORT ---
EXAM DESCRIPTION: CT - Abdomen Pelvis W Contrast - 08/01/2023 8:02 pm CLINICAL HISTORY: ABD PAIN COMPARISON: Abdomen Pelvis W Contrast dated 07/31/2023; Abdomen Pelvis W Contrast dated 11/19/2018; CT ABD PELVIS W CONTRAST dated 12/15/2014; CT ABD PELVIS W CONTRAST dated 06/23/2013 TECHNIQUE: Thin cut axial CT imaging of the abdomen and pelvis was performed following intravenous a dministration of 100 mL Isovue 300. Multiplanar reformats were generated and reviewed. All CT scans are performed using dose optimization technique as appropriate and may include automated exposure control or mA/KV adjustment according to patient size. FINDINGS: No suspicious findings in the lung bases. The liver, spleen, and pancreas show no suspicious findings. Gallbladder was surgically removed. Stab le prominence of the common bile duct likely within normal in post cholecystectomy status. Symmetric renal function is seen with no hydronephrosis or suspicious renal mass. Sequelae of Doris-en-Y gastric bypass. No dilated bowel loops or bowel wall thickening. Nonspecific fl uid opacification within nondistended distal small bowel and throughout most of the colon. Colonic di verticulosis. No free air, free fluid or inflammatory stranding. No hernia, mass or bulky lymphadenop athy. The urinary bladder is decompressed limiting evaluation. IUD in place. No suspicious bony findings. IMPRESSION: Nonspecific fluid opacification within nondistended distal small bowel and most of the c olon, may relate to enterocolitis or diarrheal state. No other acute intra-abdominal process. Sequelae of Doris-en-Y gastric bypass, cholecystectomy, and IUD placement. Colonic diverticulosis.
--- NOTE | 2023-08-01 21:30 | EDPHYS ---
Physician Documentation [facility] Name: Ruma Pineda Age: 48 yrs Sex: Female : 1975 Arrival Date: 08/01/2023 Time: 18:46 Bed 9 Private MD: ED Physician Dionicio Sarah HPI: 08/01 21:45 This 48 yrs old Female presents to ER via Ambulatory with complaints of kb Abdominal Cramping. 21:45 Patient is a 48-year-old female who presents for abdominal pain, nausea, vomiting, kb diarrhea that started 3 days ago. States she was seen here yesterday for similar symptoms and diagnosed with an ileus. Comes back today because symptoms have not gotten any better. Denies fever.. Historical: - Allergies: 18:58 HYDROCODONE (Upset stomach); ph - PSHx: 18:58 Appendectomy; breast reduction; section; Cholecystectomy; Gastric Bypass (ec); ph Tummy tuck (ec); - Immunization history:: Adult Immunizations unknown. - Social history:: Smoking status: Patient reports the use of cigarette tobacco products, denies chronic smoking, but will smoke occasionally. ROS: 21:45 Constitutional: Negative for fever, chills, and weight loss, kb 21:45 Abdomen/GI: Positive for abdominal pain, nausea, vomiting, and diarrhea, 21:45 All other systems are negative, Exam: 21:45 Constitutional: This is a well developed, well nourished patient who is awake, alert, kb and in no acute distress. Head/Face: Normocephalic, atraumatic. ENT: Moist Mucous membranes Cardiovascular: Regular rate Respiratory: Respirations even and unlabored. No increased work of breathing. Talking in full sentences Skin: Warm, dry with normal turgor. Normal color. MS/ Extremity: Pulses equal, no cyanosis. Neurovascular intact. Full, normal range of motion. Neuro: Awake and alert, GCS 15, oriented to person, place, time, and situation. Moves all extremities. Normal gait. 21:45 Abdomen/GI: Inspection: abdomen appears normal, Bowel sounds: normal, Palpation: abdomen is soft and non-tender, in all quadrants, Vital Signs: 18:56 BP 149 / 105; Pulse 112; Resp 18; Temp 98.8; Pulse Ox 100% on R/A; Weight 60.33 kg; ph Height 5 ft. 4 in. ; 21:12 BP 130 / 90; Pulse 88; Resp 16; Temp 99.2(O); Pulse Ox 100% on R/A; Pain 5/10; hb 18:56 Body Mass Index 22.83 (60.33 kg, 162.56 cm) ph 21:12 Pain Scale: Adult hb MDM: 18:55 Patient medically screened. kb 21:45 Data reviewed: vital signs, nurses notes. kb 21:46 Differential diagnosis: non-specific abd pain, Ileus, bowel obstruction. Consideration kb of Admission/Observation Escalation of care including admission/observation considered. Admission considered for continued symptoms but ileus has resolved on CT, patient nontoxic in appearance, afebrile, white blood cell count decreased. Discussion of test interpretation with radiology: I had a discussion with radiology regarding a test interpretation. Discussed CT with Dr. Hale. Ileus seen on CT yesterday has now resolved. 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 Special discussion: Based on the patient's Hx, exam, and Dx evaluation, there is no indication for emergent surgery or inpatient Tx. It is understood by the patient/guardian that if the Sx's persist or worsen they need to return immediately for re-evaluation. 08/01 18:55 Order name: CBC with Diff; Complete Time: 19:32 kb 08/01 18:55 Order name: CMP; Complete Time: 19:39 kb 08/01 18:55 Order name: Lipase; Complete Time: 19:39 kb 08/01 19:07 Order name: CT Abd/Pelvis - IV Contrast Only; Complete Time: 20:53 kb 08/01 18:55 Order name: IV Saline Lock; Complete Time: 19:15 kb 08/01 18:55 Order name: Labs collected and sent; Complete Time: 19:15 kb Administered Medications: 19:19 Drug: NS 0.9% IV 1000 ml IV at 1000 ml once Route: IV; Rate: 1000 ml; Site: right hb antecubital; 19:19 Drug: Ondansetron IVP 4 mg IVP once; over 2 minutes Route: IVP; Site: right antecubital;hb 19:19 Drug: Ketorolac IVP 15 mg IVP once Route: IVP; Site: right antecubital; hb Disposition Summary: 08/01/23 21:29 Discharge Ordered Notes: Location: Home kb Condition: Stable kb Diagnosis - Enterocolitis kb Followup: kb - With: Emergency Department - When: As needed - Reason: Worsening of condition Followup: kb - With: Private Physician - When: 2 - 3 days - Reason: Recheck today's complaints, Continuance of care, Re-evaluation by your physician Discharge Instructions: - Discharge Summary Sheet kb - Colitis kb Forms: - Medication Reconciliation Form kb - Thank You Letter kb - Antibiotic Education kb - Prescription Opioid Use kb - Patient Portal Instructions kb - Leadership Thank You Letter kb - Work release form [email or web address] Signatures: Dispatcher [employer] Jaky Salgado FNP-C FNP-Grace Summers, RN RN Gini Diaz, RN RN
--- NOTE | 2023-08-01 21:30 | ER ---
Nurse's Notes [facility] Name: Ruma Pineda Age: 48 yrs Sex: Female : 1975 Arrival Date: 08/01/2023 Time: 18:46 Bed 9 Private MD: Diagnosis: Enterocolitis Presentation: 08/01 18:56 Chief complaint: Patient states: Lower abdominal, N/V/D and fever, states that she was ph seen in ED on Monday for similar symptoms but prescribed medications are not helping and symptoms have not resolved. Coronavirus screen: Vaccine status: Patient reports receiving the 2nd dose of the covid vaccine. Ebola Screen: No symptoms or risks identified at this time. Initial Sepsis Screen: Does the patient meet any 2 criteria? No. Patient's initial sepsis screen is negative. Does the patient have a suspected source of infection? No. Patient's initial sepsis screen is negative. Risk Assessment: Do you want to hurt yourself or someone else? Patient reports no desire to harm self or others. Onset of symptoms was August 01, 2023. 18:56 Method Of Arrival: Ambulatory ph 18:56 Acuity: TAI 3 ph Triage Assessment: 19:00 General: Appears in no apparent distress. General: Appears Behavior is calm, ph cooperative. Pain: Complains of pain in suprapubic area and right lower quadrant. GI: Reports diarrhea, nausea, vomiting. Historical: - Allergies: 18:58 HYDROCODONE (Upset stomach); ph - PSHx: 18:58 Appendectomy; breast reduction; section; Cholecystectomy; Gastric Bypass (ec); ph Tummy tuck (ec); - Immunization history:: Adult Immunizations unknown. - Social history:: Smoking status: Patient reports the use of cigarette tobacco products, denies chronic smoking, but will smoke occasionally. Screenin:20 [facility] ED Fall Risk Assessment (Adult) Score/Fall Risk Level 0 - 2 = Low Risk hb Oriented to surroundings, Maintained a safe environment, Educated pt \T\ family on fall prevention, incl call for assistance when getting out of bed. Abuse screen: Denies threats or abuse. Denies injuries from another. Nutritional screening: No deficits noted. Tuberculosis screening: No symptoms or risk factors identified. Assessment: 19:19 General: Appears in no apparent distress. uncomfortable, Behavior is calm, cooperative. hb Pain: Pain currently is 8 out of 10 on a pain scale. Neuro: Level of Consciousness is awake, alert, obeys commands, Oriented to person, place, time, situation. Cardiovascular: Patient's skin is warm and dry. Respiratory: Respiratory effort is even, unlabored, Respiratory pattern is regular, symmetrical. GI: Reports lower abdominal pain, upper abdominal pain, cramping, diarrhea, intolerance of fluids, nausea, vomiting. : No signs and/or symptoms were reported regarding the genitourinary system. EENT: No signs and/or symptoms were reported regarding the EENT system. Derm: Skin is pink, warm \T\ dry. Musculoskeletal: No signs and/or symptoms reported regarding the musculoskeletal system. 21:11 Reassessment: Patient appears in no apparent distress at this time. Patient and/or hb family updated on plan of care and expected duration. Pain level reassessed. Patient is alert, oriented x 3, equal unlabored respirations, skin warm/dry/pink. 21:57 Reassessment: Patient appears in no apparent distress at this time. Patient and/or hb family updated on plan of care and expected duration. Pain level reassessed. Patient is alert, oriented x 3, equal unlabored respirations, skin warm/dry/pink. Vital Signs: 18:56 BP 149 / 105; Pulse 112; Resp 18; Temp 98.8; Pulse Ox 100% on R/A; Weight 60.33 kg; ph Height 5 ft. 4 in. ; 21:12 BP 130 / 90; Pulse 88; Resp 16; Temp 99.2(O); Pulse Ox 100% on R/A; Pain 5/10; hb 18:56 Body Mass Index 22.83 (60.33 kg, 162.56 cm) ph 21:12 Pain Scale: Adult hb ED Course: 18:49 Patient arrived in ED. rg4 18:55 Jaky Aguiar FNP-C [facility]. kb 18:55 Dionicio Sarah MD is Attending Physician. kb 18:58 Triage completed. ph 18:59 Arm band placed on right wrist. ph 19:15 CBC with Diff Sent. mb9 19:15 CMP Sent. mb9 19:15 Lipase Sent. mb9 19:15 Inserted saline lock: 20 gauge in right antecubital area, using aseptic technique. mb9 Blood collected. 19:18 Gini Diaz, RN is Primary Nurse. hb 19:20 Patient has correct armband on for positive identification. Provided Education on: hb tests, result times. 19:20 No provider procedures requiring assistance completed. hb 20:04 CT Abd/Pelvis - IV Contrast Only In Process Unspecified. EDMS 21:57 IV discontinued, intact, bleeding controlled, No redness/swelling at site. hb Administered Medications: 19:19 Drug: NS 0.9% IV 1000 ml IV at 1000 ml once Route: IV; Rate: 1000 ml; Site: right hb antecubital; 19:19 Drug: Ondansetron IVP 4 mg IVP once; over 2 minutes Route: IVP; Site: right antecubital;hb 19:19 Drug: Ketorolac IVP 15 mg IVP once Route: IVP; Site: right antecubital; hb Medication: 19:20 VIS not applicable for this client. hb Outcome: 21:29 Discharge ordered by . kb 21:57 Discharged to home ambulatory, with family, 21:57 Condition: stable 21:57 Discharge instructions given to patient, family, Instructed on discharge instructions, follow up and referral plans. medication usage, Demonstrated understanding of instructions, follow-up care, medications, 21:58 Patient left the ED. hb Signatures: Dispatcher [employer] EDMS Jaky Aguiar, MARY-Sahil SAMUELP-Grace Summers, RN RN Gini Diaz, RN RN Maryjo Flowers rg4 Rhiannon Hallman RN RN mb9
[2023-08-01 23:01] VITALS: BP 130/90; TEMP 99.2; O2SAT 100
== END ==
LOC: ER 18:46
DX: K52.9 Noninfective gastroenteritis and colitis, unspecified (principal)
CPT/HCPCS: 36415; 74177; 80053; 83690; 85025; J2405; J7030; Q9967